=== PATIENT | female | born 1985 | race Caucasian/White ===

== ENCOUNTER 2016-11-27 19:23 | Emergency (ER) | payer SELFPAY ==
[2016-11-27 20:40] VITALS: BP 167/95; PULSE 93; TEMP 98.8; BMI 40.4
--- NOTE | 2016-11-27 20:53 | EDPRACDOC ---
- General Information Stated Complaint: ABSCESS UNDER LEFT ARM Time Seen by Provider: 11/27/16 20:46 Information Source: Patient Home Medications: Home Medications Labetalol HCl [Trandate] 300 mg PO BID 11/27/15 Prednisone [Deltasone, Orasone] 2 tabs PO DAILY #20 tab 08/26/16 Hydrocodone Bit/Acetaminophen [Lortab 5/325] 1 tab PO Q4-6H PRN #15 tab Sulfamethoxazole/Trimethoprim [Bactrim Ds Tablet] 1 tab PO BID #14 tab 11/27/16 Allergies/Adverse Reactions: Allergies Allergy/AdvReac Type Severity Reaction Status Date / Time No Known Allergies Allergy Verified 08/26/16 20:48 - History of Present Illness Onset: 2-3 days HPI: Pt states L axilla abscess x 2-3 days. Denies fever, red streaking. Hx hidradenitis Location: Reports: Extremity (L axilla) Last Tetanus: Yes Relevent History Of: Reports: Hydradenitis Suppurativa Prior Abscess: Reports: Same Pain: Reports: Moderate Quality: Reports: Draining, Painful, Red Associated Signs & Symptoms: Reports: None ED Past Medical History - History Reviewed Yes Nurses notes reviewed and agree except as marked - Patient Medical History Cardiac History: Reports: Hypertension Psychological History: Denies: Depression Systemic History: Denies: Cancer, Anemia, Lupus - Family Medical History Reports: Hypertension (DAD), Diabetes (UNCLE). Denies: Cancer, Stroke, Cardiac Disorders - Social Medical History Smoking Status: Never smoker ETOH: None Substance Abuse: None EDM Review of Systems - Review of Systems Constitutional: No Symptoms Reported. negative: Fever, Chills, Weakness, Fatigue, Loss of Appetite Respiratory: No Symptoms Reported. negative: Cough, Brassy Cough, Barky Cough, Shortness of Breath, Wheezing, Hemoptysis Cardiovascular: No Symptoms Reported. negative: Chest Pain, Palpitations, Syncope, Edema, Orthopnea, PND, Skin Mottling, Cyanosis Gastrointestinal: No Symptoms Reported. negative: Pain, Constipation, Nausea, Vomiting, Diarrhea, Melena, Formula Intolerance Neurological: No Symptoms Reported. negative: Headache, Dizziness, Seizure, Numbness, Weakness, Speech Difficulty, Gait Difficulty Musculoskeletal: No Symptoms Reported. negative: Neck, Chestwall, Ribs, Back, Shoulder, Arm, Elbow, Forearm, Wrist, Hand, Pelvis, Hip, Femur, Knee, Leg, Ankle , Foot Integumentary: Wound Allergic/Immunologic: No Symptoms Reported. negative: Hives, Itching Hematologic: No Symptoms Reported. negative: Lymphadenopathy, Easy Bruising, Easy Bleeding Psychiatric: No Symptoms Reported. negative: Anxiety, Depression, Hallucinations, Insomnia, Suicidal - Physical Exam Constitutional: Alert Oriented to: Time, Person, Place Last recorded Vital Signs: Last Vital Signs Temp 98.8 F 11/27/16 20:35 Pulse 93 11/27/16 20:35 Resp 18 11/27/16 20:35 BP 167/95 11/27/16 20:35 Pulse Ox 99 11/27/16 20:35 Oxygen Pulse Oxygen Saturation 99 O2 Device Room Air Oxygen Flow Rate Fraction of Inspired Oxygen ( FIO2) - HEENT Head: Normal ( normocephalic) Eye Exam: Normal (PERRL, EOMI, Sclera white) - Respiratory/Cardiovascular Respiratory: Normal - CTA (BBS clear to auscultation without adventitious sounds ) Cardiovascular: Normal (RRR without murmur, gallop or rub) - Musculoskeletal Extremities: Normal (Normal tone, Pulses 2+ No cyanosis or edema, FROM) - Integumentary Skin: Normal, Warm, Dry Lymphatics: Normal (no adenopathy) - Neurologic Memory Impaired: Normal Motor Function: Normal (Normal tone, Pulses 2+ No cyanosis or edema, FROM) Mood Description: Normal Perception: Normal ED Abscess/Mass Exam - Integumentary Skin: Normal, Warm, Dry Mass: Red, Tender, Firm, Local Cellulitis Lymphatics: Normal ED Procedures - Incision and Drainage Informed of risks, benefits and alternatives described.: Yes Informed Consent Signed: Verbal Site: L axilla Indication: Painful Mass Anesthetic: Lidocaine, with Epi Prep: Betadine Blade Size: 11 Incised Site drained: Reports: Blood Incised site was: Not irrigated, Not Packed with Iodoform - Differential Diagnosis Abscess, Cellulitis, Hidradenitis Decision Time to Discharge: 21:13 - Departure Disposition: Home Condition: Good Final Diagnosis: Abscess of left axilla Instructions: Abscess Incision and Drainage (ED) Education/Counseling Given To: Patient Education/Counseling Given Regarding: Diagnosis, Treatment, Follow Up Referrals: Bessy Keen MD [Primary Care Provider] - One Week Clayton Hay MD [Staff Physician] - One Week Prescriptions: Hydrocodone Bit/Acetaminophen [Lortab 5/325] 1 tab PO Q4-6H PRN #15 tab PRN Reason: Pain Sulfamethoxazole/Trimethoprim [Bactrim Ds Tablet] 1 tab PO BID #14 tab Additional Instructions: Keep wound clean and dry, apply warm compresses to affected area 20 mins at a time 4 - 5 times daily, return to the ED for any worsening symptoms or concerns.
== END 2016-11-27 21:16 | disposition home or self-care (01) ==
LOC: EDMC 19:23
DX: L02.412 Cutaneous abscess of left axilla (principal)
CPT/HCPCS: 10060; 99282; J3490